=== PATIENT | male | born 2000 | race Caucasian/White ===

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

== ENCOUNTER → 2020-10-01 | Emergency (ER) | payer OTHER | LOC: COL.ER 22:00 | DX: R69 Illness, unspecified (principal) ==